=== PATIENT | female | born 1985 | race Caucasian/White ===

== ENCOUNTER → 2019-07-04 09:16 | Outpatient (BNVA) | payer OTHER, SELFPAY | PROVIDERS: Family Provider Family Medicine; PCP Family Medicine; Visit Provider Nurse Practitioner Women's Health | DX: Z30.011 Encounter for initial prescription of contraceptive pills (principal); N76.0 Acute vaginitis; B96.89 Other specified bacterial agents as the cause of diseases classified elsewhere | CPT/HCPCS: 88175 ==

== ENCOUNTER → 2020-06-20 15:20 | Outpatient (BNVA) | payer OTHER, SELFPAY | PROVIDERS: Family Provider Family Medicine; PCP Family Medicine | DX: J02.0 Streptococcal pharyngitis (principal) | CPT/HCPCS: 87880 ==

== ENCOUNTER → 2020-07-16 15:52 | Outpatient (BNVA) | payer OTHER, SELFPAY | PROVIDERS: Family Provider Family Medicine; PCP Family Medicine; Visit Provider Nurse Practitioner Women's Health | DX: N92.1 Excessive and frequent menstruation with irregular cycle (principal); Z12.39 Encounter for other screening for malignant neoplasm of breast | CPT/HCPCS: 84439; 84443 ==

== ENCOUNTER → 2020-08-07 14:22 | Outpatient (BNVA) | payer OTHER, SELFPAY | PROVIDERS: Family Provider Family Medicine; PCP Family Medicine; Visit Provider Nurse Practitioner Women's Health | DX: N93.9 Abnormal uterine and vaginal bleeding, unspecified (principal); N88.8 Other specified noninflammatory disorders of cervix uteri | CPT/HCPCS: 76830 ==

== ENCOUNTER 2020-08-23 14:20 | Outpatient (CLI) | payer OTHER, SELFPAY ==
--- NOTE | 2020-08-23 14:30 | MM_ITS ---
WS: [id number] BILATERAL DIGITAL SCREENING MAMMOGRAPHY WITH CAD CLINICAL INFORMATION: Z12.39 - Encounter for other screening for malignant neoplasm of breast HISTORY: Screening mammogram. No current complaints. COMPARISON: February 07, 2014 TECHNIQUE: Bilateral CC and MLO views. FINDINGS: The breasts are composed of heterogeneous fibroglandular density tissue, which can limit the detectio n of small underlying mass lesions. A few punctate calcifications. No suspicious mass, asymmetry, kenneth cifications, or architectural distortion. No evidence of malignancy. MM/[id number] IMPRESSION: BI-RADS: 2-Benign FOLLOW UP: 1 Year Follow-up Recommend return to annual screening mammography.
== END 2020-08-23 14:21 | disposition home or self-care (01) ==
LOC: RADSHAW 14:20
PROVIDERS: PCP Family Medicine; Visit Provider Nurse Practitioner Women's Health
DX: Z12.31 Encounter for screening mammogram for malignant neoplasm of breast (principal)
CPT/HCPCS: 77067

== ENCOUNTER 2021-03-15 21:02 | Emergency (ER) | payer OTHER, SELFPAY ==
[2021-03-15 21:08] VITALS: BP 170/99; PULSE 124; RESP 19; O2SAT 97; BMI 28.8
--- NOTE | 2021-03-15 21:25 | W.ED.WOUNDLC ---
HPI - Wound/Laceration General: Chief Complaint: Wound/Laceration Stated Complaint: fall- head lac Time Seen by Provider: 03/15/21 21:14 History of Present Illness: HPI narrative: Patient sustained a laceration to the right side of her forehead eyebrow area when she fell and struck a cabinet knob late this evening. Patient denies any loss conscious , neck pain or other related problems. Said she did not even really strike her head Jeremias caught the cabinet knob with her skin. Onset (ago): minute(s) Location: face Place: home Patient tetanus UTD: Yes Context: accidental Associated symptoms: Reports no associated symptoms; Denies chills, fever(s), nausea or vomiting Review of Systems Const: Denies: fever(s), chills or body aches Eyes: Denies: change in vision or blurry vision ENMT: Denies: throat pain or nasal congestion Card: Denies: chest pain or dyspnea on exertion Resp: Denies: dyspnea, productive cough or non-productive cough GI: Denies: abdominal pain, nausea or vomiting Musc: Denies: extremity pain Skin/Breast: Reports: other (Laceration right eyebrow area no active bleeding); Denies: rash Neuro: Denies: headache(s) Psych: Reports: anxiety; Denies: depression Willian/Lymph: Denies: easy bruising PFSH ED PFSH: Medical History Family history of breast cancer H/O: hypothyroidism has not been on this medication for 3 years No pertinent past medical history neghx: htn,dm,dvt/pe PCP: Dr. Telles Surgical History History of tonsillectomy (~1987) Family History Grandmother Breast cancer Maternal--dx age younger age Ovarian cancer Paternal Grandfather Stroke Maternal Hypertension Matneral Father Diabetes Brother Diabetes Mother Breast cancer dx age 54 Denies family history of Colon cancer Heart disease Hypercholesteremia Uterine cancer Thyroid disease Physical Exam Const: COMMON NORMALS: no acute distress GENERAL APPEARANCE: cooperative Eye: COMMON NORMALS: Equal, round and reactive pupils present, EOMs intact bilaterally and conjunctivae normal CONJUNCTIVA: Yes conjunctivae normal PUPIL: Yes Equal, round and reactive pupils present Neck/C-Spine: COMMON NORMALS: full ROM GENERAL: Yes normal visual inspection CERVICAL SPINE: Yes cervical ROM normal and No pain with cervical ROM Cardio: COMMON NORMALS: regular rhythm RATE: tachycardic RHYTHM: regular rhythm Neuro: COMMON NORMALS: moves all extremities, no focal motor deficits and no sensory deficits noted Psych: COMMON NORMALS: mental status grossly normal APPEARANCE: Yes grossly normal ATTITUDE: Yes Other attitude/behavior findings present (Psych) (Anxious) Skin: OTHER: And staff laceration to right outer eyebrow area. No active bleeding. Procedures Laceration Laceration 1: Site: face Side (If applicable): right Size (cm): 4 Description: clean Depth: simple, single layer Pre-repair: wound explored Skin layer closed with: other (Skin adhesive and Steri-Strips) Course Vital Signs: Vital signs: Vital Signs Pulse Rate 124 H 03/15/21 21:08 Respiratory Rate 19 H 03/15/21 21:08 Blood Pressure 170/99 03/15/21 21:08 Pulse Oximetry 97 03/15/21 21:08 Discharge Plan Discharge Patient Disposition: Home Clinical Impression: Laceration Condition: Stable Prescriptions: No Action paroxetine HCl 20 mg tablet 20 mg PO DAILY 30 Days Qty: 90 RF: 1 clonazepam 1 mg tablet 1 mg PO BID PRN (Reason: anxiety) Qty: 35 RF: 2 levonorgestrel-ethinyl estrad [[place]-28] 0.15-0.03 mg tablet 1 tab PO DAILY Qty: 84 RF: 3 Discharge Orders: Discharge ED (Routine); Ordered 03/15/21 Ordered By: Joseph Salinas Referrals: Adelaide Telles MD [Primary Care Provider] - Discharge Diet: Usual diet Discharge Activity: Resume usual activity Patient Instructions: Skin Adhesive Care (ED) Activity Restrictions/Additional Instructions: Full instruction skin adhesive care sheet. Watch for signs symptoms of infection. Apply ice to area. Can take Tylenol for discomfort. Follow-up your family medical provider if any significant changes or you can return here. Coding Level of Care Code ED Automatic Coil Machine Operator for Ye Swann
[2021-03-15] MEDS: acetaminophen 500 mg Tablet 1000 MG PO (21:36)
[2021-03-15 21:59] VITALS: BP 148/80; PULSE 113; RESP 18; O2SAT 98
== END 2021-03-15 21:59 | disposition home or self-care (01) ==
PROVIDERS: Emergency Provider Nurse Practitioner Family; PCP Family Medicine
DX: S01.111A Laceration without foreign body of right eyelid and periocular area, initial encounter (principal); W19.XXXA Unspecified fall, initial encounter
CPT/HCPCS: 12013; 99282

== ENCOUNTER 2021-10-15 13:05 | Outpatient (CLI) | payer OTHER, SELFPAY ==
--- NOTE | 2021-10-15 13:13 | MM_ITS ---
WS: [id number] BILATERAL 3D TOMOSYNTHESIS DIGITAL SCREENING MAMMOGRAPHY WITH CAD CLINICAL INFORMATION: SCREENING HISTORY: Screening mammogram. No current complaints. COMPARISON: August 23, 2020 TECHNIQUE: Bilateral CC and MLO views. FINDINGS: Scattered fibroglandular densities bilaterally. 8mm ovoid asymmetric density inferior quadrant LEFT b reast posterior depth best seen on the MLO view near the chest wall. This is more conspicuous compare d to August 23, 2020. Recommend further evaluation with spot compression views and ultrasound. RIGHT breast is unchanged and unremarkable. A few incidental punctate calcifications. MM/[id number] IMPRESSION: BI-RADS: 0-Incomplete: Need additional imaging evaluation FOLLOW UP: Need Additional Imaging Recommend LEFT breast diagnostic mammography with spot compression views and ul trasound.
== END 2021-10-15 13:06 | disposition home or self-care (01) ==
LOC: RAD 13:09
PROVIDERS: PCP Family Medicine; Visit Provider Nurse Practitioner Women's Health
DX: Z12.31 Encounter for screening mammogram for malignant neoplasm of breast (principal); R92.2 Inconclusive mammogram
CPT/HCPCS: 77063; 77067

== ENCOUNTER 2021-11-10 10:58 | Outpatient (CLI) | payer OTHER, SELFPAY ==
--- NOTE | 2021-11-10 11:12 | MM_ITS ---
WS: [id number] LEFT 3D TOMOSYNTHESIS DIGITAL MAMMOGRAPHY WITH CAD CLINICAL INFORMATION: ABNORMAL MAMMOGRAM COMPARISON: October 15, 2021 TECHNIQUE: 4 views of the left breast were obtained. FINDINGS: Scattered fibroglandular densities of the left breast. Previously described ovoid asymmetry inferior quadrant LEFT breast posterior depth partially compresses out on the spot compression views and appea rs to represent overlapping fibroglandular tissue. No suspicious areas visualized in the cc views. Re commend return to annual screening mammography. No suspicious focal mass, asymmetry, calcifications, or architectural distortion. No evidence of maria del rosario gnancy. MM/[id number] IMPRESSION: BI-RADS: 2-Benign FOLLOW UP: 1 Year Follow-up Recommend return to annual screening mammography.
== END 2021-11-10 10:59 | disposition home or self-care (01) ==
PROVIDERS: PCP Family Medicine; Visit Provider Nurse Practitioner Women's Health
DX: R92.8 Other abnormal and inconclusive findings on diagnostic imaging of breast (principal)
CPT/HCPCS: 77061

== ENCOUNTER → 2022-05-26 15:59 | Outpatient (BNVA) | payer OTHER, SELFPAY | PROVIDERS: PCP Family Medicine; Visit Provider Nurse Practitioner Women's Health | DX: N92.1 Excessive and frequent menstruation with irregular cycle (principal); Z12.4 Encounter for screening for malignant neoplasm of cervix; Z30.41 Encounter for surveillance of contraceptive pills | CPT/HCPCS: 87624 ==

== ENCOUNTER 2022-11-17 12:47 | Outpatient (CLI) | payer OTHER, SELFPAY ==
--- NOTE | 2022-11-17 13:18 | MM_ITS ---
WS: [id number] BILATERAL SCREENING DIGITAL TOMOSYNTHESIS MAMMOGRAM WITH CAD HISTORY: SCREENING COMPARISON: 11/10/2021, 10/15/2021 and 08/23/2020 Bilateral CC and MLO views with tomosynthesis and synthetic mammography submitted. Computer aided det ection analyzed. Breast composition: The breasts are heterogeneously dense, which may obscure small masses. No suspici ous masses, microcalcifications or architectural distortion. Scattered asymmetries are stable. MM/[id number] IMPRESSION: BI-RADS: 2-Benign FOLLOW UP: 1 Year Follow-up
== END 2022-11-17 12:48 | disposition home or self-care (01) ==
LOC: RAD 12:52
PROVIDERS: PCP Family Medicine; Visit Provider Family Medicine
DX: Z12.31 Encounter for screening mammogram for malignant neoplasm of breast (principal)
CPT/HCPCS: 77063; 77067

== ENCOUNTER → 2023-02-15 08:47 | Outpatient (BNVA) | payer OTHER, SELFPAY | PROVIDERS: PCP Family Medicine; Visit Provider Family Medicine | DX: Z86.39 Personal history of other endocrine, nutritional and metabolic disease | CPT/HCPCS: 80053; 80061; 84439; 84443; 85025 ==

== ENCOUNTER 2023-10-14 17:59 | Emergency (ER) | payer OTHER, SELFPAY ==
[2023-10-14 18:17] VITALS: BP 141/91; PULSE 90; RESP 16; TEMP 36.8; O2SAT 99; BMI 32.5
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
[2023-10-14 19:10] VITALS: BP 143/83; PULSE 76; RESP 14; O2SAT 99
== END 2023-10-14 19:30 | disposition home or self-care (01) ==
PROVIDERS: Emergency Provider Emergency Medicine; PCP Family Medicine
DX: S16.1XXA Strain of muscle, fascia and tendon at neck level, initial encounter (principal); S29.012A Strain of muscle and tendon of back wall of thorax, initial encounter; V89.2XXA Person injured in unspecified motor-vehicle accident, traffic, initial encounter
CPT/HCPCS: 99283

== ENCOUNTER 2023-11-19 08:27 | Outpatient (CLI) | payer OTHER, SELFPAY ==
--- NOTE | 2023-11-19 08:30 | MM_ITS ---
WS: [id number] SCREENING DIGITAL TOMOSYNTHESIS MAMMOGRAM WITH CAD HISTORY: Z12.31 - Encounter for screening mammogram for malignant ... COMPARISON: 02/07/2014 Bilateral CC and MLO with tomosynthesis views submitted. Synthetic mammography reviewed. Computer aid ed detection analyzed. Breast composition: There are scattered areas of fibroglandular density. No suspicious masses, microc alcifications or architectural distortion. MM/[id number] IMPRESSION: BI-RADS: 1-Negative FOLLOW UP: 1 Year Follow-up
== END 2023-11-19 08:28 | disposition home or self-care (01) ==
LOC: RAD 08:27
PROVIDERS: PCP Family Medicine; Visit Provider Nurse Practitioner Women's Health
DX: Z12.31 Encounter for screening mammogram for malignant neoplasm of breast (principal); R92.323 Mammographic fibroglandular density, bilateral breasts
CPT/HCPCS: 77063; 77067

== ENCOUNTER → 2024-09-24 17:08 | Outpatient (BNVA) | payer OTHER, SELFPAY | PROVIDERS: PCP Family Medicine | DX: S93.491A Sprain of other ligament of right ankle, initial encounter (principal); X50.1XXA Overexertion from prolonged static or awkward postures, initial encounter | CPT/HCPCS: 73610 ==

== ENCOUNTER 2024-11-20 09:12 | Outpatient (CLI) | payer OTHER, SELFPAY ==
--- NOTE | 2024-11-20 09:17 | MM_ITS ---
WS: [id number] BILATERAL SCREENING DIGITAL TOMOSYNTHESIS MAMMOGRAM WITH CAD HISTORY: SCREENING COMPARISON: 11/19/2023, 11/17/2022 Bilateral CC and MLO views with tomosynthesis and synthetic mammography submitted. Computer aided detection analyzed. Breast composition: The breasts are heterogeneously dense, which may obscure small masses. No suspicious masses, microcalcifications or architectural distortion. MM/MM scr [place] tomosynthesis [id number] IMPRESSION: BI-RADS: 2 - Benign FOLLOW UP: 1 Year Follow-up
== END 2024-11-20 09:13 | disposition home or self-care (01) ==
PROVIDERS: PCP Family Medicine; Visit Provider Family Medicine
DX: Z12.31 Encounter for screening mammogram for malignant neoplasm of breast (principal)
CPT/HCPCS: 77063; 77067

== ENCOUNTER 2024-12-16 13:52 | Emergency (ER) | payer OTHER, SELFPAY ==
[2024-12-16 13:59] VITALS: BP 158/92; PULSE 85; RESP 15; TEMP 36.7; O2SAT 100; BMI 33.2
--- NOTE | 2024-12-16 14:15 | ED_ITS ---
HPI - Animal Bite 2 General: Chief Complaint: Animal Bite Stated Complaint: Bit by dog Time Seen by Provider: 12/16/24 14:07 History of Present Illness: This is a healthy 39-year-old female who presents to the emergency room after her elderly dog bit her on the arm. She has 4 small puncture wounds on her left forearm. She said there was another dog and heat and this dog is old and a bit grumpy and ended up biting her on the arm. She has not updated his rabies vaccine in a few years and so she is concerned and wants to have the rabies vaccine. She has some surrounding erythema already this happened about 3 hours ago. Bleeding appears controlled Related Data Previous Rx's ?Medication ?Instructions ?Recorded buspirone 15 mg tablet 15 mg PO BID #180 tabs 07/04 clonazepam 1 mg tablet 1 mg PO BID PRN anxiety #60 tabs 07/04/24 venlafaxine 75 mg capsule,extended 75 mg PO DAILY #90 caps 07/04/24 release 24 hr miscellaneous medical supply 1 ea miscellaneous .prn h igh ankle 09/24/24 sprain #1 ea levonorgestrel 0.15 mg-ethinyl 1 tab PO DAILY #84 tabs 11/16/24 estradiol 0.03 mg tablet ([place] 28) amoxicillin 875 mg-potassium 1 tab PO BID 7 days #14 t abs 12/16/24 clavulanate 125 mg tablet Allergies Allergy/AdvReac Type Severity Reaction Status Date / Time No Known Allergies Allergy Verified 11/16/24 08:55 Review of Systems 2 Narrative: Constitutional symptoms: Negative except as documented in HPI. Skin symptoms: Negative except as documented in HPI. Eye symptoms: Negative except as documented in HPI. ENMT symptoms: Negative except as documented in HPI. Respiratory symptoms: Negative except as documented in HPI. Cardiovascular symptoms: Negative except as documented in HPI. Gastrointestinal symptoms: Negative except as documented in HPI. Genitourinary symptoms: Negative except as documented in HPI. Musculoskeletal symptoms: Negative except as documented in HPI. Neurologic symptoms: Negative except as documented in HPI. Psychiatric symptoms: Negative except as documented in HPI. Endocrine symptoms: Negative except as documented in HPI. PFSH ED 2 PFSH: Medical History (Updated 12/16/24 @ 14:13 by Amanda Mayer MD) Anxiety Family history of breast cancer No pertinent past medical history neghx: htn,dm,dvt/pe PCP: Dr. Guy H/O: hypothyroidism has not been on this medication for 3 years Surgical History History of tonsillectomy (~1987) Family History Grandmother Breast cancer Maternal--dx age younger age Ovarian cancer Paternal Grandfather Stroke Maternal Hypertension Matneral Father Diabetes Brother Diabetes Mother Breast cancer dx age 54 Denies family history of Colon cancer Heart disease Hypercholesteremia Uterine cancer Thyroid disease Social History Smoking and tobacco/nicotine status: never used tobacco/nicotine Alcohol intake: current Substance/Drug Use: never Adopted: No service: No Current occupational exposures/hazards: No Physical Exam 2 Narrative: EXAM NARRATIVE: General: Alert, no acute distress. Skin: warm and dry Head: Normocephalic Neck: Trachea midline Eye: Extraocular movements are intact. Ears, nose, mouth and throat: Oral mucosa moist Respiratory: Respirations are non-labored Musculoskeletal: Normal ROM Gastrointestinal: Abdomen does not appear distended Neurological: Alert and oriented, No focal neurological deficit observed. Psychiatric: Cooperative, appropriate mood & affect. Course 2 Vital Signs: Vital signs: Vital Signs Temperature 98.1 F 12/16/24 13:59 Pulse Rate 85 12/16/24 13:59 Respiratory Rate 15 12/16/24 13:59 Blood Pressure 158/92 12/16/24 13:59 Pulse Oximetry 100 12/16/24 13:59 Oxygen Delivery Me thod Room Air 12/16/24 13:59 MDM - Animal Bite Medical Decision Making Assessment and plan: Dog bite Rabies prophylaxis ?First dose Augmentin. Rabies vaccine and immunoglobulin. - Discharged home - Discussed plan with patient. Answered any questions. - Evaluation and treatment of this problem were appropriate in the emergency setting. No radiology studies performed this visit Discharge Plan Discharge Patient Disposition: Home Clinical Impression: Bite by animal, Rabies, need for prophylactic vaccination against Condition: Stable Prescriptions: New amoxicillin-pot clavulanate 875-125 mg tablet 1 tab PO BID 7 Days Qty: 14 0RF No Action buspirone 15 mg tablet 15 mg PO BID Qty: 180 1RF clonazepam 1 mg tablet 1 mg PO BID PRN (Reason: anxiety) Qty: 60 3RF Rx Instructions: . venlafaxine 75 mg capsule,extended release 24hr 75 mg PO DAILY Qty: 90 1RF levonorgestrel-ethinyl estrad [[place] 28] 0.15-0.03 mg tablet 1 tab PO DAILY Qty: 84 3RF miscellaneous medical supply Misc 1 ea miscellaneous .prn Qty: 1 0RF Rx Instructions: cam walking boot Discharge Orders: Discharge ED (Routine); Ordered 12/16/24 Ordered By: Amanda Mayer Referrals: Perfecto Guy MD [Primary Care Provider, Family Practice] Discharge Diet: Usual diet Discharge Activity: Increase activity as tolerated Patient Instructions: Rabies Vaccine (By injection), Rabies Immune Globulin (By injection), Animal Bite (ED), Opioid Safety, Pain Management, Patient Portal & Andre Instructions Print Language: Maori Coding Level of Care Code ED Occupational Therapist for Ye Swann
[2024-12-16] MEDS: rabies vaccine 2.5 unit SDV IM (14:40)
[2024-12-16] MEDS: rabies IG 300 unit/mL SDV 1 mL 2040 UNIT IM (14:43)
== END 2024-12-16 15:12 | disposition home or self-care (01) ==
PROVIDERS: Emergency Provider Emergency Medicine; PCP Family Medicine
DX: S51.852A Open bite of left forearm, initial encounter (principal); W54.0XXA Bitten by dog, initial encounter; Z20.3 Contact with and (suspected) exposure to rabies; Z29.14 Encounter for prophylactic rabies immune globulin
CPT/HCPCS: 90375; 90471; 90675; 96372; 99283; J9999

== ENCOUNTER 2025-01-01 08:49 | Oncology outpatient (recurring) (ONCR) | payer OTHER, SELFPAY ==
[2024-12-19] MEDS: rabies vaccine 2.5 unit SDV IM (08:45)
[2024-12-25] MEDS: rabies vaccine 2.5 unit SDV IM (08:58)
[2025-01-01] MEDS: rabies vaccine 2.5 unit SDV IM (08:57)
== END 2025-01-04 23:59 | disposition home or self-care (01) ==
PROVIDERS: PCP Family Medicine; Visit Provider Emergency Medicine
DX: Z53.9 Procedure and treatment not carried out, unspecified reason (principal); Z23 Encounter for immunization; Z20.3 Contact with and (suspected) exposure to rabies; T14.8XXA Other injury of unspecified body region, initial encounter; X58.XXXA Exposure to other specified factors, initial encounter
CPT/HCPCS: 90471; 90675

== ENCOUNTER → 2025-01-21 18:00 | Outpatient (BNVA) | payer OTHER, SELFPAY | PROVIDERS: PCP Family Medicine; Visit Provider Emergency Medicine | DX: M25.571 Pain in right ankle and joints of right foot (principal) | CPT/HCPCS: 73610 ==

== ENCOUNTER → 2025-01-22 15:58 | Outpatient (BNVA) | payer OTHER, SELFPAY | PROVIDERS: PCP Family Medicine; Visit Provider Podiatrist Foot & Ankle Surgery | DX: S82.874A Nondisplaced pilon fracture of right tibia, initial encounter for closed fracture (principal); W19.XXXA Unspecified fall, initial encounter | CPT/HCPCS: 73610 ==

== ENCOUNTER → 2025-01-26 14:17 | Outpatient (BNVA) | payer OTHER, SELFPAY | PROVIDERS: PCP Family Medicine; Visit Provider Podiatrist Foot & Ankle Surgery | DX: S82.874A Nondisplaced pilon fracture of right tibia, initial encounter for closed fracture (principal); W18.30XA Fall on same level, unspecified, initial encounter; Y93.02 Activity, running | CPT/HCPCS: 73610 ==

== ENCOUNTER 2025-01-30 09:23 | Day surgery (SDC) | payer OTHER, SELFPAY ==
[2025-01-30] VITALS (9 sets, daily range): BP systolic 121–158; BP diastolic 84–99; PULSE 80–109; RESP 14–19; TEMP 36.2–37.5; O2SAT 98–100; BMI 33.0
--- NOTE | 2025-01-30 09:34 | W.PM.OPSUD ---
Surgery/Procedure H&P Update DATE OF PROCEDURE: January 30, 2025 DATE H&P PERFORMED: 01/26/25 H&P UPDATE INFORMATION: I have reviewed H&P completed within last 30 days, I have examined patient prior to procedure, No changes to prior documentation and Risks and benefits of the procedure reviewed PREOP DIAGNOSIS: Right pilon fracture PLANNED PROCEDURE: Operation Date: 01/30/25 10:10 Proposed Procedures p ORIF Ankle ORIF RIGHT Pilon Fracture(Right) - Jose Gillespie DPM
--- NOTE | 2025-01-30 09:50 | ANES.PREANE2 ---
Pre-Anesthetic Assessment Height/Weight: Height 5 ft 9 in Weight 224 lb Temp Pulse Resp BP Pulse Ox O2 Del Method 97.7 F 109 H 18 158/99 100 Room Air 01/30/25 09:36 01/30/25 09:36 01/30/25 09:36 01/30/25 09:36 01/30/25 09:36 01/30/25 09:41 Preop Diagnosis: Right pilon fracture Operation Date: 01/30/25 10:10 Proposed Procedures p ORIF Ankle ORIF RIGHT Pilon Fracture(Right) - Jose Gillespie DPM Was Beta Laurence taken within 24 hours: N/A Was Clonidine taken within 24 hours: N/A Last intake: Intake Last Liquid Date 01/29/25 Last Liquid Time 20:00 Last Solid Date 01/29/25 Last Solid Time 20:00 Social No alcohol and No tobacco Exam alert, oriented x 3, clear to auscultation bilaterally and regular rate & rhythm Airway Submandibular: within normal limits Cervical ROM: within normal limits Mallampati: Class I Dentition: full Anesthetic Plan ASA status: 2 Anesthesia: General Other: No prior issues with anesthesia NPO since yesterday evening Denies any cardiac or pulmonary issues Patient has significant anxiety, very nervous today. Preop BP 158/99 but most likely secondary to anxiety METs greater than 4 Plan for general anesthesia with post induction nerve block Medications/Allergies Home Medications ?Medication ?Instructions ?Recorded ?Confirmed ?Last Taken ?Type buspirone 15 mg tablet 15 mg PO BID #180 tabs 07/04/24 01/29/25 01/29/25 Rx venlafaxine 75 mg capsule,extended 75 mg PO DAILY #90 caps 07/04/24 01/29/25 01/29/25 Rx release 24 hr miscellaneous medical supply 1 ea miscellaneous .prn high ankle 09/24/24 01/29/25 Unknown Rx sprain #1 ea levonorgestrel 0.15 mg-ethinyl 1 tab PO DAILY #84 tabs 11/16/24 01/29/25 01/29/25 Rx estradiol 0.03 mg tablet ([place] 28) clonazepam 1 mg tablet 1 mg PO BID PRN anxiety #60 tabs 01/15/25 01/29/25 01/29/25 Rx miscellaneous medical supply 1 ea miscellaneous DAILY #1 ea 01/21/25 01/29/25 Unknown Rx hydrocodone 10 mg-acetaminophen 1 tab PO Q6H PRN pain 7 days #28 01/30/25 Unknown Rx 325 mg tablet tabs Allergies Allergy/AdvReac Type Severity Reaction Status Date / Time No Known Allergies Allergy Verified 01/26/25 12:56 PFSH Anesthesia Medical History Anxiety Family history of breast cancer No pertinent past medical history neghx: htn,dm,dvt/pe PCP: Dr. Guy H/O: hypothyroidism has not been on this medication for 3 years Surgical History History of tonsillectomy (~1987) Family History Grandmother Breast cancer Maternal--dx age younger age Ovarian cancer Paternal Grandfather Stroke Maternal Hypertension Matneral Father Diabetes Brother Diabetes Mother Breast cancer dx age 54 Denies family history of Colon cancer Heart disease Hypercholesteremia Uterine cancer Thyroid disease Social History Smoking and tobacco/nicotine status: never used tobacco/nicotine Alcohol intake: current Substance/Drug Use: never Adopted: No service: No Current occupational exposures/hazards: No
[2025-01-30] MEDS: ceFAZolin 2,000 mg SDV 2000 MG IVP (10:15)
--- NOTE | 2025-01-30 10:37 | ANES.PROC ---
Anesthesia Procedures Procedure/Date: 01/30/25 right adductor canal block and right popliteal block for postoperative pain control Nerve Block ^: Nerve Block 1: Main Anesthesia: general anesthesia Time Out Performed: Yes Consent: requested by attending/covering physician and from patient Laterality: Right Nerve block location: popliteal Anesthesia monitors applied: pulse oximetry, EKG, BP cuff and oxygen Nerve block position: supine Anesthetic Used: ropivicaine 0.5% Amount of anesthesia used (mL): 25 Ultrasound used to: recognize landmarks Nerve Stimulator Used?: Yes Interscalene/Femoral BLK: other needle (pjunk 4inch) Injection: neg aspiration of heme Patient Tolerated Procedure: well Complications: none Additional Comments: decadron 4mg added to block Nerve Block 2: Main Anesthesia: general anesthesia Time Out Performed: Yes Consent: requested by attending/covering physician and from patient Laterality: Right Nerve block location: adductor canal Anesthesia monitors applied: pulse oximetry, EKG, BP cuff and oxygen Nerve block position: supine Anesthetic Used: ropivicaine 0.5% Amount of anesthesia used (mL): 15 Ultrasound used to: recognize landmarks Nerve Stimulator Used?: Yes Interscalene/Femoral BLK: other needle (pjunk 4inch ) Injection: neg aspiration of heme Patient Tolerated Procedure: well Complications: none Additional Comments: decadron 4mg
--- NOTE | 2025-01-30 11:19 | W.PM.BPON ---
Date of Procedure: 08/20/23 Surgeon: Jose Gillespie DPM Plastic Cnc Machine Operator(s): Joel Procedure(s) performed: open reduction internal fixation right pilon fracture Findings of the procedure(s): None Estimated blood loss: 1 mL Specimen(s) removed: No specimens removed. Post-operative diagnosis: Right pilon fracture
--- NOTE | 2025-01-30 11:20 | PM.OP ---
Operative Report Date of procedure: January 30, 2025 Pre-op diagnosis: S82.874A - Nondisplaced pilon fracture of right tibia, initial encounter for closed fracture Post-op diagnosis: S82.874A - Nondisplaced pilon fracture of right tibia, initial encounter for closed fracture Procedure done: Open reduction internal fixation right pilon fracture. CPT code 91931 Implants: 4 mm cannulated partially-threaded screw [employer] 28 4 mm fully threaded cannulated screw [employer] 28 Specimens removed/disposition: None Pathology: none Surgeon: Jose Gillespie DPM Motorcycle Deliverer: Joel Estimated blood loss: 1 mL 24 minutes IV fluids: See intraoperative documentation Urine output: No urine output Complications: No complications Brief History: Date of injury 01/20/2025 twisted fell outdoors x-ray right ankle AP oblique and lateral view taken 01/21/2025 and repeat x-ray taken 01/22/2025 demonstrates possible occult fracture requiring further advanced imaging to evaluate seen at the lateral view at both ankle x-rays suspicious for pilon type fracture that is nondisplaced of the distal tibia extending into the tibial plafond. Repeat x-ray today's visit 01/26/2025 shows 2 mm displacement of a pilon fracture involving 50% of the tibial plafond and with 2 mm of step-off of the posterior fragment positioned inferiorly. Discussed risks versus benefits of conservative versus surgical management. My concern of conservative management is that further displacement could occur as well as delayed healing and nonhealing and increased chance of more aggressive posttraumatic arthritis. Advantages of ORIF is to restore joint surface and rigid internal fixation. I reviewed at length with the patient, the risks, potential complications, benefits, alternatives, expectations, and typical outcomes associated with the surgery. The risks and potential complications were explained in detail, including but not limited to infection, wound dehiscence or soft tissue complications, bleeding and hematoma, chronic edema, neuritis or nerve damage producing numbness or chronic pain, CRPS, failure to relieve pain or worsening pain, thick / painful / unsightly scar, limited motion / stiffness, malposition, delayed union, malunion, or nonunion, fracture, reaction to implants, anesthetic complications, venous thromboembolism, and deformity recurrence. I discussed the notion of no regrets with the patient as it pertains to complications and outcomes. The patient seemed to understand the nature of the proposed care and required convalescence. They asked appropriate questions, answered to their satisfaction. They are aware no guarantees can be made as to a satisfactory outcome and they understand there may be other possible unforeseen complications or outcomes not listed here that will be treated accordingly if they arise. There were no written or implied guarantees given to the patient. They gave informed consent to proceed. Procedure: Under mild sedation patient was brought to the operating room and remained in the gurney in supine position. A timeout was performed. Anesthesia was then administered by the anesthesia service. Of note right popliteal block performed preoperatively per anesthesia. Well-padded pneumatic tourniquet applied to the right high calf. The right lower extremity was scrubbed, prepped and draped utilizing normal aseptic technique. Right foot and ankle were exanguinated with Esmarch bandage and tourniquet inflated to 250 mmHg. Attention was directed to the right ankle where midline anterior ankle incision was performed through skin with dissection carried down through subcutaneous tissue to the layer of anterior distal tibia utilizing a combination of sharp and blunt technique. Care was taken to retract and preserve neurovascular and tendon structures. All bleeders were ligated and cauterized as necessary. Manual traction was applied to the right ankle utilizing intraoperative C arm the right weightbearing surface of the distal tibia with fracture involving 50% of the distal tibia was visualized and utilizing ligamentotaxis the fracture was reduced anatomically and fixated utilizing standard AO technique. This was fixated with paragon 4 mm screws with excellent bony apposition and compression noted. The distal screw was placed utilizing a cannulated screw that had short thread purchasing only the posterior fragment for compression and intraoperative C arm confirmed this did not violate the ankle mortise. The more proximal screw was fully threaded with overdrilled under drill lag technique. Fracture was fixated with 2 points of fixation and noted to be congruent with smooth intraoperative range of motion. The incisions were irrigated saline solution and closed in a layered fashion, skin closed with 4-0 nylon. Operative site was dressed with Xeroform and an OpSite followed by application of a Jakob wrap and cam boot to the right lower extremity. Tourniquet was deflated and a prompt hyperemic response is noted to the distal digits of the right foot. Patient tolerated the procedure and anesthesia well and was transferred to the PACU with vital signs stable and vascular status intact. Following a period of postoperative monitoring should be discharged home without home care instructions and scheduled follow-up.
--- NOTE | 2025-01-30 13:30 | ANE.PACU2 ---
Inpatient post-anesthesia follow up: Airway intact: Yes Vital signs: Temperature 97.2 F Pulse Rate 83 Respiratory Rate 18 Blood Pressure 151/87 Pulse Oximetry 99 Oxygen Delivery Me thod Room Air Oxygen Flow Rate 6 Fraction of Inspir ed Oxygen Hydration adequate: Yes Nausea and vomiting: No Pain level: 1 Mental status: Baseline
== END 2025-01-30 12:30 | disposition home or self-care (01) ==
PROVIDERS: PCP Family Medicine; Visit Provider Podiatrist Foot & Ankle Surgery
PROC: (CPT 27827; principal; 2025-01-30 10:00)
DX: S82.874A Nondisplaced pilon fracture of right tibia, initial encounter for closed fracture (principal); W19.XXXA Unspecified fall, initial encounter; F41.9 Anxiety disorder, unspecified; E03.9 Hypothyroidism, unspecified
CPT/HCPCS: 27827; 64447; 64445; 73610; 76000; C1713; J0131; J0690; J1100; J2250; J2405; J2704; J3010; J7030; J9999

== ENCOUNTER → 2025-02-02 11:11 | Outpatient (BNVA) | payer OTHER, SELFPAY | PROVIDERS: PCP Family Medicine; Visit Provider Podiatrist Foot & Ankle Surgery | DX: Z98.890 Other specified postprocedural states (principal); Z87.81 Personal history of (healed) traumatic fracture | CPT/HCPCS: 73610 ==

== ENCOUNTER → 2025-02-08 08:23 | Outpatient (BNVA) | payer OTHER, SELFPAY | PROVIDERS: PCP Family Medicine; Visit Provider Podiatrist Foot & Ankle Surgery | DX: S82.874A Nondisplaced pilon fracture of right tibia, initial encounter for closed fracture (principal); Z98.890 Other specified postprocedural states; Z87.81 Personal history of (healed) traumatic fracture; X58.XXXA Exposure to other specified factors, initial encounter | CPT/HCPCS: 73610 ==

== ENCOUNTER → 2025-02-27 14:33 | Outpatient (BNVA) | payer OTHER, SELFPAY | PROVIDERS: PCP Family Medicine; Visit Provider Podiatrist Foot & Ankle Surgery | DX: Z98.890 Other specified postprocedural states (principal); Z87.81 Personal history of (healed) traumatic fracture | CPT/HCPCS: 73610 ==

== ENCOUNTER → 2025-03-15 13:05 | Outpatient (BNVA) | payer OTHER, SELFPAY | PROVIDERS: PCP Family Medicine; Visit Provider Podiatrist Foot & Ankle Surgery | DX: Z98.890 Other specified postprocedural states (principal); Z87.81 Personal history of (healed) traumatic fracture | CPT/HCPCS: 73610 ==

== ENCOUNTER → 2025-03-29 13:37 | Outpatient (BNVA) | payer OTHER, SELFPAY | PROVIDERS: PCP Family Medicine; Visit Provider Podiatrist Foot & Ankle Surgery | DX: Z98.890 Other specified postprocedural states (principal); Z87.81 Personal history of (healed) traumatic fracture | CPT/HCPCS: 73610 ==